=== PATIENT | male | born 1940 | race Hispanic/Latino ===

== ENCOUNTER 2021-05-12 16:24 | Emergency (ER) | payer MEDICARE ==
--- NOTE | 2021-05-12 18:25 | XRay Report ---
CHEST 1 VIEW 05/12/2021 6:01 PM INDICATION / CLINICAL INFORMATION: weakness. COMPARISON: None available. FINDINGS: SUPPORT DEVICES: None. HEART / MEDIASTINUM: No significant abnormality. LUNGS / PLEURA: No significant pulmonary or pleural abnormality. No pneumothorax. ADDITIONAL FINDINGS: No significant additional findings. IMPRESSION: 1. No acute findings. Signer Name: Jacob Cruz MD Signed: 05/12/2021 6:21 PM Workstation Name: [id number]
[2021-05-12 18:34] LABS: Hematocrit 35.1 % (35.5-45.6); Mean Corpuscular HGB Conc 31 % (32-34); Mean Corpuscular Volume 84 fl (84-94); Platelet Count 427 K/mm3 (140-440); Red Cell Distribution Width 15.3 % (13.2-15.2)
[2021-05-12 18:55] LABS: Albumin 2.5 g/dL (3.9-5); Calcium 8.7 mg/dL (8.4-10.2)
[2021-05-12] MEDS ORDERED: SODIUM CHLORIDE 0.9% 1000 ML IV SOLN IV ONE (19:06)
--- NOTE | 2021-05-12 19:23 | Event Note ---
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 Further treatment and workup at subsequent clinical providers discretion. Patient/guardian urged not to elope from the ED as their condition may be serious if not clinically assessed and managed. Initial orders include: Labs, urine
--- NOTE | 2021-05-12 19:42 | Emergency Department Report ---
ED General Adult HPI - General Chief complaint: Medical Clearance Stated complaint: i feel tired PUI?: No Time Seen by Provider: 05/12/21 19:24 Source: patient, RN notes reviewed Mode of arrival: Ambulatory Limitations: No Limitations - History of Present Illness Initial comments: The patient was evaluated in the emergency department for symptoms described in the history of present illness. He/she was evaluated in the context of the global COVID-19 pandemic, which necessitated consideration that the patient might be at risk for infection with the virus that causes COVID-19. Institutional protocols and algorithms that pertain to the evaluation of patients at risk for COVID-19 are in a state of rapid change based on info rmation released by regulatory bodies including the CDC and federal and state organizations. These policies and algorithms were followed during the patient's care in the emergency department. Please note that these policies, procedures and recommendations changed on a rapid basis. The patient is a pleasant 81-year-old gentleman. He is not known to myself previously. The patient reports that he has no long-term chronic medical conditions. The patient is referred to the emergency room by his primary care doctor for medical clearance, "to make sure I am not dehydrated." Patient is not COVID-19 vaccinated, and a few weeks ago, reports cough, with loss of taste or smell. Since then, he has had decreased appetite, and generalized weakness without physical pain. He reports that he is up-to-date on his outpatient health screenings, including colonoscopy, and prostate evaluation. He denies severe headache, neck pain, chest pain, abdominal pain, hematemesis, bright red blood per rectum, skin rash, urinary symptoms. He does feel weak, and is feels like he has decreased energy. He is able to eat and drink, but has decreased appetite. He has had an outpatient Covid test which was negative, but to the best of his knowledge, he is not been tested for serologic Covid antibodies. -: Gradual, week(s) Consistency: constant Improves with: rest Worsens with: other (Physical exertion) - Related Data Allergies Allergy/AdvReac Type Severity Reaction Status Date / Time No Known Allergies Allergy Verified 05/12/21 17:39 ED Review of Systems ROS: Stated complaint: NO ENERGY Other details as noted in HPI Constitutional: malaise, weakness. denies: fever Eyes: denies: eye discharge Respiratory: denies: cough, wheezing Cardiovascular: denies: chest pain, palpitations Gastrointestinal: denies: abdominal pain, nausea, vomiting, hematemesis, melena, hematochezia Genitourinary: denies: dysuria Skin: denies: rash Neurological: weakness Hematological/Lymphatic: denies: easy bleeding ED Past Medical Hx - Past Medical History Previous Medical History?: No - Surgical History Past Surgical History?: No ED Physical Exam - General Limitations: No Limitations General appearance: alert, in no apparent distress - Head Head exam: Present: atraumatic, normocephalic - Eye Eye exam: Present: normal appearance (There is an opacified chronic appearing left cataract. Right eye within normal limits), EOMI. Absent: nystagmus - ENT ENT exam: Present: normal exam, normal orophraynx, mucous membranes moist, normal external ear exam - Neck Neck exam: Present: normal inspection, full ROM. Absent: tenderness, meningismus - Respiratory Respiratory exam: Present: normal lung sounds bilaterally. Absent: respiratory distress, wheezes, rales, rhonchi, stridor, decreased breath sounds - Cardiovascular Cardiovascular Exam: Present: regular rate, normal rhythm, normal heart sounds. Absent: bradycardia, tachycardia, irregular rhythm, systolic murmur, diastolic murmur, rubs, gallop - GI/Abdominal GI/Abdominal exam: Present: soft, normal bowel sounds. Absent: distended, tenderness, guarding, rebound, rigid, pulsatile mass - Rectal Rectal exam: Present: deferred - Extremities Exam Extremities exam: Present: normal inspection, full ROM, other (2+ pulses noted in the bilateral upper and lower extremities. There is no palpable cord. negative Homans sign. Muscular compartments are soft. The pelvis is stable.). Absent: pedal edema, calf tenderness - Back Exam Back exam: Present: normal inspection, full ROM. Absent: tenderness, CVA tenderness (R), CVA tenderness (L), paraspinal tenderness, vertebral tenderness - Neurological Exam Neurological exam: Present: alert, oriented X3, normal gait, other (No facial droop. Tongue midline. Extraocular movements intact bilaterally. Facial sensation intact to light touch in V1, V2, V3 distribution bilaterally. 5 and a 5 strength in 4 extremities. Sensation intact to light touch in 4 extremities .). Absent: motor sensory deficit - Psychiatric Psychiatric exam: Present: normal affect, normal mood - Skin Skin exam: Present: warm, dry, intact, normal color. Absent: rash ED Course Vital Signs 05/12/21 17:38 Temperature 98.9 F Pulse Rate 104 H Respiratory 20 Rate Blood Pressure 117/88 O2 Sat by Pulse 97 Oximetry ED Medical Decision Making - Lab Data Result diagrams: 05/12/21 18:21 05/12/21 18:21 Vital Signs 05/12/21 17:38 Temperature 98.9 F Pulse Rate 104 H Respiratory 20 Rate Blood Pressure 117/88 O2 Sat by Pulse 97 Oximetry Lab Results 05/12/21 05/12/21 05/12/21 Range/Units 18:21 18:21 18:21 WBC 20.9 H (4.5-11.0) K/mm3 RBC 4.20 (3.65-5.03) M/mm3 Hgb 11.0 L (11.8-15.2) gm/dl Hct 35.1 L (35.5-45.6) % MCV 84 (84-94) fl MCH 26 L (28-32) pg MCHC 31 L (32-34) % RDW 15.3 H (13.2-15.2) % Plt Count 427 (140-440) K/mm3 APTT (24.2-36.6) Sec. Sodium 133 L (137-145) mmol/L Potassium 4.3 (3.6-5.0) mmol/L Chloride 99.6 (98-107) mmol/L Carbon Dioxide 20 L (22-30) mmol/L Anion Gap 18 mmol/L BUN 17 (9-20) mg/dL Creatinine 1.3 (0.8-1.3) mg/dL Estimated GFR 53 ml/min BUN/Creatinine Ratio 13 % Glucose 109 H (75-100) mg/dL Calcium 8.7 (8.4-10.2) mg/dL Total Bilirubin 0.60 (0.1-1.2) mg/dL AST 37 (5-40) units/L ALT 36 (7-56) units/L Alkaline Phosphatase 110 (35-129) units/L Troponin T (0.00-0.029) ng/mL Total Protein 7.0 (6.3-8.2) g/dL Albumin 2.5 L (3.9-5) g/dL Albumin/Globulin Ratio 0.6 % TSH 3.800 (0.270-4.200) mlU/mL Urine Color (Yellow) Urine Turbidity (Clear) Urine pH (5.0-7.0) Ur Specific [place] (1.003-1.030) Urine Protein (Negative) mg/dL Urine Glucose (UA) (Negative) mg/dL Urine Ketones (Negative) mg/dL Urine Blood (Negative) Urine Nitrite (Negative) Urine Bilirubin (Negative) Urine Urobilinogen (<2.0) mg/dL Ur Leukocyte Esterase (Negative) Urine WBC (Auto) (0.0-6.0) /HPF Urine RBC (Auto) (0.0-6.0) /HPF U Epithel Cells (Auto) (0-13.0) /HPF 05/12/21 05/12/21 05/12/21 Range/Units 19:08 19:08 Unknown WBC (4.5-11.0) K/mm3 RBC (3.65-5.03) M/mm3 Hgb (11.8-15.2) gm/dl Hct (35.5-45.6) % MCV (84-94) fl MCH (28-32) pg MCHC (32-34) % RDW (13.2-15.2) % Plt Count (140-440) K/mm3 APTT 42.8 H (24.2-36.6) Sec. Sodium (137-145) mmol/L Potassium (3.6-5.0) mmol/L Chloride (98-107) mmol/L Carbon Dioxide (22-30) mmol/L Anion Gap mmol/L BUN (9-20) mg/dL Creatinine (0.8-1.3) mg/dL Estimated GFR ml/min BUN/Creatinine Ratio % Glucose (75-100) mg/dL Calcium (8.4-10.2) mg/dL Total Bilirubin (0.1-1.2) mg/dL AST (5-40) units/L ALT (7-56) units/L Alkaline Phosphatase (35-129) units/L Troponin T < 0.010 (0.00-0.029) ng/mL Total Protein (6.3-8.2) g/dL Albumin (3.9-5) g/dL Albumin/Globulin Ratio % TSH (0.270-4.200) mlU/mL Urine Color Yellow (Yellow) Urine Turbidity Clear (Clear) Urine pH 5.0 (5.0-7.0) Ur Specific [place] 1.014 (1.003-1.030) Urine Protein 30 mg/dl (Negative) mg/dL Urine Glucose (UA) Neg (Negative) mg/dL Urine Ketones Neg (Negative) mg/dL Urine Blood Mod (Negative) Urine Nitrite Neg (Negative) Urine Bilirubin Neg (Negative) Urine Urobilinogen < 2.0 (<2.0) mg/dL Ur Leukocyte Esterase Neg (Negative) Urine WBC (Auto) 0.0 (0.0-6.0) /HPF Urine RBC (Auto) < 1.0 (0.0-6.0) /HPF U Epithel Cells (Auto) < 1.0 (0-13.0) /HPF - EKG Data -: EKG Interpreted by Tn EKG shows normal: sinus rhythm Rate: tachycardia - EKG Data 05/12/21 21:42 The EKG is interpreted at 17: 59 Sinus tachycardia, rate 101 bpm. Left axis deviation, intervals within normal limits. Abnormal EKG. Not a STEMI. No prior for comparison - Radiology Data Radiology results: pending, report reviewed, image reviewed CHEST 1 VIEW 05/12/2021 6:01 PM INDICATION / CLINICAL INFORMATION: weakness. COMPARISON: None available. FINDINGS: SUPPORT DEVICES: None. HEART / MEDIASTINUM: No significant abnormality. LUNGS / PLEURA: No significant pulmonary or pleural abnormality. No pneumothorax. ADDITIONAL FINDINGS: No significant additional findings. IMPRESSION: 1. No acute findings. Signer Name: Jacob Cruz MD Signed: 05/12/2021 5:21 PM Workstation Name: [id number] - Medical Decision Making Differential diagnosis, including but not limited to: Dehydration, encounter for medical screening examination, anemia, electrolyte derangement, thyroid derangement, Covid long hauler Assessment and plan: 81-year-old gentleman, who was afebrile, with reassuring vital signs, with resolved tachycardia, with a GCS of 15, who is ambulating with a steady gait, who was able to tolerate oral feeds which I have personally provided to this patient, who is likely presenting with symptoms of COVID long- haul. Counseled patient on natural history of Covid long-haul. Have recommended outpatient serologic testing to assess for the presence of antibodies. Laboratory studies are unremarkable with the exception of leukocytosis, which I suspect is a stress reaction. Patient denies fevers, shakes, rigors, and his physical examination is otherwise benign and unremarkable, so bacteremia is very unlikely. Symptoms have been going on for a few weeks. Patient observed in this ER for a prolonged period of time without clinical decompensation. On my final reassessment he is resting comfortably, in stretcher, completing IV fluids, and endorses understanding with the plan of care. Critical care attestation.: If time is entered above; I have spent that time in minutes in the direct care of this critically ill patient, excluding procedure time. 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 Recommend that patient advance diet as tolerated, drink plenty of fluids, and eat what he can tolerate. We suspect that patient's symptoms are coming from long-term Covid. Recommend outpatient antibody testing/serologic testing arranged by your primary care doctor. Rest, and avoid heavy lifting and strenuous physical activities. Participate in physical activities as tolerated. Follow-up with your primary care doctor wi thin the next 3 to 5 days. Please return to the emergency room right away with new pain, worsened pain, migration of pain, projectile vomiting, change in mental status, confusion, inability tolerate liquid feeds, new, worsened or different symptoms not present on the initial emergency room evaluation Referrals: APOLINAR HASSAN MD [Primary Care Provider] - 3-5 Days
[2021-05-12 20:01] LABS: Bilirubin,Urine NEG (Negative); Blood,Urine MOD (Negative); Color,Urine Yellow (Yellow); RBC,Urine < 1.0 /HPF (0.0-6.0); Urobilinogen,Urine < 2.0 mg/dL (<2.0)
[2021-05-12 23:32] VITALS: BP 100/60
[2021-05-13 00:23] LABS: Total Cells Counted 100
[2021-05-13 00:24] LABS: Anisocytosis 1+; Basophils % (Manual) 0 % (0.0-1.8); Eosinophils % (Manual) 0 % (0.0-4.3); Platelet Estimate Consistent w Auto
--- NOTE | 2021-05-14 09:08 | Electrocardiograph Report ---
Test Date: 2021-05-12 Test Time: 17:59:55 Pat Name: CRISTAL MEDINA Department: Room: Gender: M Manager Professional Development: : 1940 Requested By: BEVERLY GUARDADO Order Number: [id number] Reading MD: Josue Stein Measurements Intervals [place] Rate: 101 P: -18 MA: 160 QRS: -65 QRSD: 75 T: -7 QT: 315 QTc: 409 Interpretive Statements Sinus tachycardia Inferolateral infarct, old No previous ECG available for comparison Electronically Signed On 05-14-2021 9:07:50 EST by Josue Stein
== END 2021-05-13 00:57 | disposition home or self-care (01) ==
LOC: ED 16:24
DX: U09.9 Post COVID-19 condition, unspecified (principal)
CPT/HCPCS: 36415; 71045; 80053; 81001; 84443; 84484; 85007; 85025; 85730; 93005; 93010; 96360; 99284; J7030; Q0162

== ENCOUNTER 2021-11-27 10:38 | Emergency (ER) | payer MEDICARE ==
[2021-11-27 10:55] VITALS: BP 121/74
== END 2021-11-27 14:00 | disposition left against medical advice (07) ==
LOC: ED 10:38
DX: R50.9 Fever, unspecified (principal); Z53.21 Procedure and treatment not carried out due to patient leaving prior to being seen by health care provider